=== PATIENT | female | born 1985 | race Caucasian/White ===

== ENCOUNTER 2019-08-28 23:56 | Emergency (ER) | payer BC ==
[~2019-08-28] VITALS: Ht 157.5 cm; Wt 68.0 kg
[2019-08-29] MEDS ORDERED: LEVSIN/SL0.125 MG SL (08:06)
[2019-08-29] MEDS ORDERED: CIPRO500 MG PO (08:06)
[2019-08-29] MEDS ORDERED: ZOFRAN4 MG PO (08:06)
[2019-08-29] MEDS ORDERED: PEPCID40 MG PO (08:06)
== END 2019-08-29 08:52 | disposition home or self-care (01) ==
LOC: ER 23:56
DX: K52.89 Other specified noninfective gastroenteritis and colitis (principal)